=== PATIENT | male | born 1965 | race Hispanic/Latino ===

== ENCOUNTER 2017-09-12 23:48 | Emergency (ER) | payer MEDICAID ==
[2017-09-13 00:22] VITALS: BP 128/71; PULSE 78; RESP 18; TEMP 98.2; O2SAT 99
[2017-09-13] MEDS ORDERED: Sodium Chloride 0.9% 1,000 ML IV STA (00:42)
--- NOTE | 2017-09-13 00:46 | ED PDOC ---
Arrival/HPI - General Historian: Patient - History of Present Illness Time/Duration: Other (see hpi) Context: Home <Sera Reza - Last Filed: 09/13/17 02:06> <Guicho Carmona - Last Filed: 09/13/17 02:52> - General Chief Complaint: Male Genitourinary Time Seen by Provider: 09/13/17 00:41 - History of Present Illness Narrative History of Present Illness (Text): 09/13/17 00:43 This 52 yo male with a pmh cirrhosis, kidney stones, presents o this ED c/o left flank pain since early this afternoon. Patient stated pain resembles like kidney stones she has had in the past. Patient denies fever, sob, cp, n/v, urinary symptoms, or abnormal gait. (Sera Reza) Past Medical History - Provider Review Nursing Documentation Reviewed: Yes - Hematological/Oncological Hx Cirrhosis: Yes - Psychiatric Hx Substance Use: No <Sera Reza - Last Filed: 09/13/17 02:06> Family/Social History - Physician Review Nursing Documentation Reviewed: Yes Family/Social History: Other (noncontributory) Smoking Status: n Hx Alcohol Use: Yes Frequency of alcohol use: Daily Hx Substance Use: No <Sera Reza - Last Filed: 09/13/17 02:06> Allergies/Home Meds <Sera Reza - Last Filed: 09/13/17 02:06> <Guicho Carmona - Last Filed: 09/13/17 02:52> Allergies/Adverse Reactions: Allergies Opioids - Morphine Analogues Adverse Reaction (Verified 09/13/17 00:22) VOMITING Review of Systems - Review of Systems Constitutional: Normal. absent: Fatigue, Weight Change, Fevers Eyes: Normal ENT: Normal Respiratory: Normal Cardiovascular: Normal Gastrointestinal: Abdominal Pain. absent: Nausea, Vomiting Genitourinary Male: Normal. absent: Dysuria, Frequency, Hematuria Musculoskeletal: Normal. absent: Back Pain, Neck Pain Skin: Normal. absent: Rash Neurological: Normal. absent: Headache, Dizziness, Focal Weakness, Gait Changes , Speech Changes, Facial Droop, Disequilibrium, Seizure Endocrine: Normal Hemo/Lymphatic: Normal Psychiatric: Normal. absent: Anxiety, Depression, Suicidal Ideation <Sera Reza - Last Filed: 09/13/17 02:06> Physical Exam Temperature: Afebrile Blood Pressure: Normal Pulse: Regular Respiratory Rate: Normal Appearance: Positive for: Well-Appearing, Non-Toxic, Comfortable Pain Distress: None Mental Status: Positive for: Alert and Oriented X 3 - Systems Exam Head: Present: Atraumatic, Normocephalic Pupils: Present: PERRL Extroacular Muscles: Present: EOMI Conjunctiva: Present: Normal Mouth: Present: Moist Mucous Membranes Neck: Present: Normal Range of Motion Respiratory/Chest: Present: Clear to Auscultation, Good Air Exchange. No: Respiratory Distress, Accessory Muscle Use Cardiovascular: Present: Regular Rate and Rhythm, Normal S1, S2. No: Murmurs Abdomen: Present: Normal Bowel Sounds. No: Tenderness, Distention, Peritoneal Signs Back: Present: Normal Inspection. No: CVA Tenderness, Midline Tenderness, Paraspinal Tenderness, Pain with Leg Raise Upper Extremity: Present: Normal Inspection, Normal ROM. No: Cyanosis, Edema Lower Extremity: Present: Normal Inspection, Normal ROM. No: Edema Neurological: Present: GCS=15, CN II-XII Intact, Speech Normal, Motor Func Grossly Intact, Normal Sensory Function, Normal Cerebellar Funct, Gait Normal, Memory Normal Skin: Present: Warm, Dry, Normal Color. No: Rashes Psychiatric: Present: Alert, Oriented x 3, Normal Insight, Normal Concentration <Sera Reza - Last Filed: 09/13/17 02:06> Vital Signs Temp Pulse Resp BP Pulse Ox 09/13/17 00:13 98.2 F 78 18 128/71 99 Medical Decision Making Re-evaluation Time: 02:06 Reassessment Condition: Re-examined, Improved <Sera Reza - Last Filed: 09/13/17 02:06> <Guicho Carmona - Last Filed: 09/13/17 02:52> ED Course and Treatment: 09/13/17 02:06 Re-evaluation. Patient feels better. Discussed results and plan with patient who expresses understanding. All questions answered and there is agreement with the plan to discharge home with instructions. Patient stable for discharge. Return if symptoms persist or worsen. (Sera Reza P) - Lab Interpretations Lab Results: 09/13/17 00:55 09/13/17 00:55 Lab Results 09/13/17 01:25: Urine Color Yellow, Urine Appearance Clear, Urine pH 6.0, Ur Specific Yoder >= 1.030, Urine Protein Negative, Urine Glucose (UA) Negative, Urine Ketones Negative, Urine Blood Trace-lysed H, Urine Nitrate Negative, Urine Bilirubin Small H, Urine Urobilinogen 1.0 H, Ur Leukocyte Esterase Negative, Urine RBC 0 - 2, Urine WBC 0 - 2, Ur Epithelial Cells 0 - 2 09/13/17 00:55: Sodium 148, Potassium 4.0, Chloride 114 H, Carbon Dioxide 21, Anion Gap 17, BUN 5 L, Creatinine 0.5 L, Est GFR ( Amer) > 60, Est GFR ( Non-Af Amer) > 60, Random Glucose 106, Calcium 8.8, Total Bilirubin 4.1 H, AST 80 H, ALT 26, Alkaline Phosphatase 214 H, Total Protein 8.0, Albumin 3.8, Globulin 4.1, Albumin/Globulin Ratio 0.9 L 09/13/17 00:55: WBC 6.4, RBC 3.64, Hgb 13.0 L, Hct 37.3 L, MCV 102.5, MCH 35.7 H , MCHC 34.9, RDW 15.4 H, Plt Count 56 L, MPV 11.1 H, Gran % 50.5, Lymph % (Auto ) 37.2 H, [place] % (Auto) 8.4 H, Eos % (Auto) 3.4, Baso % (Auto) 0.5, Gran # 3.24 , Lymph # (Auto) 2.4, [place] # (Auto) 0.5, Eos # (Auto) 0.2, Baso # (Auto) 0.03 - RAD Interpretation Radiology Orders: 09/13/17 00:42 ABD & PELVIS W/O PO OR IV CONT [CT] Stat - Medication Orders Current Medication Orders: Discontinued Medications Sodium Chloride (Sodium Chloride 0.9%) 1,000 mls @ 999 mls/hr IV .Q1H1M STA Stop: 09/13/17 01:42 Last Admin: 09/13/17 00:59 Dose: 999 mls/hr eMAR Start Stop Document 09/13/17 00:59 CNR (Rec: 09/13/17 00:59 CNR [id number]) Intravenous Solution Start Date 02/27/18 Start Time 00:59 Ketorolac Tromethamine (Toradol) 30 mg IVP STAT STA Stop: 09/13/17 00:43 Last Admin: 09/13/17 00:59 Dose: 30 mg MAR Pain Assessment Document 09/13/17 00:59 CNR (Rec: 09/13/17 01:00 CNR [id number]) Pain Reassessment Is this a pain reassessment? Yes Location Pain Location Body Site Abdomen Description Description Constant IVP Administration Document 09/13/17 00:59 CNR (Rec: 09/13/17 01:00 CNR [id number]) Charges for Administration # of IVP Administrations 1 - PA / MARKETING PROFESSIONAL / Resident Statement / has reviewed & agrees with the documentation as recorded. / has examined the patient and agrees with the treatment plan. <Guicho Carmona - Last Filed: 09/13/17 02:52> Disposition/Present on Arrival - Present on Arrival Any Indicators Present on Arrival: No History of DVT/PE: No History of Uncontrolled Diabetes: No Urinary Catheter: No History of Decub. Ulcer: No History Surgical Site Infection Following: None - Disposition Have Diagnosis and Disposition been Completed?: Yes Disposition Time: 02:06 Patient Plan: Discharge <Sera Reza - Last Filed: 09/13/17 02:06> <Guicho Carmona - Last Filed: 09/13/17 02:52> - Disposition Diagnosis: Flank pain Disposition: HOME/ ROUTINE Discharge Instructions (ExitCare): Flank Pain Additional Instructions: Call private doctor for follow up visit in 1-2 days. Take medication as instructed. return to emergency if symptoms worsen. Prescriptions: Famotidine [Pepcid] 40 mg PO DAILY #10 tablet Naproxen 500 mg PO BID PRN #14 tablet PRN Reason: Pain, Severe (8-10) Referrals: [facility] [Outside] - Follow up with primary [facility] [Outside] - Follow up with primary Forms: [employer] (Belarusian), WORK NOTE
[2017-09-13 01:23] LABS: BASO # 0.03 K/mm3 (0.0-2.0); BASO % 0.5 % (0.0-3.0); EOS # 0.2 (0.0-0.7); EOS % 3.4 % (1.5-5.0); GRAN # 3.24 (1.4-6.5); GRAN % 50.5 % (50.0-68.0); LYMPH # 2.4 (1.2-3.4); LYMPH % 37.2 % (22.0-35.0); MEAN CELL VOLUME 102.5 fl (80.0-105.0); MEAN CORPUSCULAR HEMOGLOBIN 35.7 pg (25.0-35.0); MEAN CORPUSCULAR HGB CONC 34.9 g/dl (31.0-37.0); MEAN PLATELET VOLUME 11.1 fl (7.0-11.0); MONO # 0.5 (0.1-0.6); MONO % 8.4 % (1.0-6.0); RBC 3.64 10^6/uL (3.5-6.1); RED CELL DISTRIBUTION WIDTH 15.4 % (11.5-14.5); WHITE BLOOD COUNT 6.4 10^3/ul (4.5-11.0)
[2017-09-13 01:38] LABS: URINE BILIRUBIN SMALL (NEGATIVE); URINE BLOOD TRACE-LYSED (NEGATIVE); URINE GLUCOSE (UA) NEGATIVE (NEGATIVE); URINE LEUKOCYTE ESTERASE NEGATIVE Leu/uL (NEGATIVE); URINE NITRATE NEGATIVE (NEGATIVE); URINE PROTEIN NEGATIVE mg/dL (<30 mg/dL)
[2017-09-13 01:39] LABS: ALB/GLOB RATIO 0.9 (1.1-1.8); ALBUMIN 3.8 g/dL (3.0-4.8); ALT/SGPT 26 U/L (7-56); AST/SGOT 80 U/L (17-59); BLOOD UREA NITROGEN 5 mg/dL (7-21); CALCIUM 8.8 mg/dL (8.4-10.5); GFR AFRICAN-AMERICAN > 60; GFR NON-AFRICAN AMERICAN > 60
[2017-09-13 01:45] LABS: URINE APPEARANCE CLEAR (CLEAR); URINE COLOR YELLOW (YELLOW)
[2017-09-13 01:54] LABS: URINE EPITHELIAL CELLS 0 - 2 /hpf (0-5); URINE RBC 0 - 2 /hpf (0-2); URINE WBC 0 - 2 /hpf (0-6)
--- NOTE | 2017-09-13 02:43 | CT ---
EXAM: CT Abdomen and Pelvis Without Intravenous Contrast EXAM DATE/TIME: 09/13/2017 12:42 AM CLINICAL HISTORY: The patient age is 52 years old and is male; Pain; Abdominal pain; Flank; Left; Additional info: Left flank pain Facility exam id and description: Ct abdpelscon abd pelvis w/o po or iv cont TECHNIQUE: Axial computed tomography images of the abdomen and pelvis without intravenous contrast. All CT scans at this facility use one or more dose reduction techniques, viz.: automated exposure control; ma/kV adjustment per patient size (including targeted exams where dose is matched to indication; i.e. head); or iterative reconstruction technique. Coronal and sagittal reformatted images were created and reviewed. COMPARISON: No relevant prior studies available. FINDINGS: Lower thorax: Small cysts or bullae are visualized at the lung bases. ABDOMEN: Liver: Unremarkable. No mass. Gallbladder and bile ducts: Multiple hyperdense gallstones are identified. Pancreas: Within the uncinate portion of the pancreas, there is a hypodense lesion measuring 1.4 x 1.3 cm. An additional small hypodense lesion is seen more inferiorly within the pancreatic head/uncinate process. Differential considerations include pancreatic cysts, pseudocysts, IPMNs, and cystic neoplasm. Spleen: The spleen is enlarged measuring 17.3 cm in length. Adrenals: No mass. Kidneys and ureters: No obstructing stones. No hydronephrosis. Stomach and bowel: Colonic diverticula are visualized. There is stranding adjacent to the ascending colon, which is likely inflammatory. Diverticulitis is within the differential. There is minimal to mild stranding adjacent to the descending colon as well. Appendix: No findings to suggest acute appendicitis. PELVIS: Bladder: No stones. Reproductive: The prostate is mildly prominent in size. ABDOMEN and PELVIS: Intraperitoneal space: No free air. Bones/joints: Hypertrophic degenerative changes are noted within the spine. Soft tissues: A surgical clip is visualized within each inguinal canal. Vasculature: There is atherosclerotic calcification of the abdominal aorta. No abdominal aortic aneurysm. Lymph nodes: No enlarged lymph nodes. IMPRESSION: 1. Splenomegaly. 2. Within the uncinate portion of the pancreas, there is a hypodense lesion measuring 1.4 x 1.3 cm. An additional small hypodense lesion is seen more inferiorly within the pancreatic head/uncinate process. Differential considerations include pancreatic cysts, pseudocysts, IPMNs, and cystic neoplasm. A nonemergent MRI of the abdomen with/without contrast is recommended. 3. Cholelithiasis. 4. Colonic diverticula are visualized. There is stranding adjacent to the ascending colon, which is likely inflammatory. Diverticulitis is within the differential. There is minimal to mild stranding adjacent to the descending colon as well. 5. Incidental/non-acute findings are described above.
== END 2017-09-13 03:15 | disposition home or self-care (01) ==
LOC: MERGE 23:48 → ED 23:48
DX: R10.9 Unspecified abdominal pain (principal); K74.60 Unspecified cirrhosis of liver
CPT/HCPCS: 74176; 80053; 81001; 85025; 96374; 99284; J1885; J7040

== ENCOUNTER 2017-11-23 16:57 | Emergency (ER) | payer MEDICAID ==
[2017-11-23 17:08] VITALS: BMI 25.5
[2017-11-23 17:14] VITALS: TEMP 98.7
--- NOTE | 2017-11-23 17:48 | ED PDOC ---
Arrival/HPI - General Chief Complaint: Abnormal Labs Time Seen by Provider: 11/23/17 17:24 Historian: Patient - History of Present Illness Narrative History of Present Illness (Text): 11/23/17 17:47 A 52 year old male, whose past medical history includes Cirrhosis, kidney stones , antibiotic induced liver failure, [place] [facility] [place]. Patient reports that he went for routine lab work and was called and informed that he had a uti. Antibiotics were called in but patient came to [facility] ED because he was told that his lfts were increased and he needed to get an u/s. Denies chest pain, shortness of breath or abdominal pain. No PMD blood work from [facility]: total bilirubin 6.4 direct 2.2 indirect 4 albumin 3.4 Alt 41 Ast 94 Alk Phos 137 lipase 256 Symptom Onset: Sudden Symptom Course: Unchanged Activities at Onset: Rest Context: [place] Past Medical History - Provider Review Nursing Documentation Reviewed: Yes - Infectious Disease Hx of Infectious Diseases: None - Pulmonary Other/Comment: Recurrent lung infections - HEENT Hx HEENT Disorder: Yes - Renal Hx Kidney Stones: Yes - Hematological/Oncological Hx Cirrhosis: Yes Other/Comment: Stage IV liver disease - Musculoskeletal/Rheumatological Hx Herniated Disk: Yes - Psychiatric Hx Substance Use: No - Surgical History Other/Comment: right knee - Anesthesia Hx Anesthesia: Yes Hx Anesthesia Reactions: No Family/Social History - Physician Review Nursing Documentation Reviewed: Yes Family/Social History: No Known Family HX Smoking Status: Never Smoked Hx Alcohol Use: Yes Hx Substance Use: No Allergies/Home Meds Allergies/Adverse Reactions: Allergies codeine Allergy (Verified 11/03/17 12:46) RASH Opioids - Morphine Analogues Allergy (Verified 11/03/17 12:46) VOMITING Penicillins Allergy (Verified 11/03/17 12:46) RASH Home Medications: Home Meds Medication Instructions Recorded Confirmed No Known Home Med 11/23/17 11/23/17 Review of Systems - Physician Review All systems were reviewed & negative as marked: Yes - Review of Systems Constitutional: absent: Fatigue, Weight Change, Fevers Respiratory: absent: SOB, Cough, Sputum, Wheezing Cardiovascular: absent: Chest Pain, Palpitations Gastrointestinal: absent: Abdominal Pain, Constipation, Diarrhea, Nausea, Vomiting Genitourinary Male: Dysuria. absent: Frequency, Hematuria, Urinary Output Changes Musculoskeletal: absent: Back Pain Neurological: absent: Headache, Dizziness Physical Exam Vital Signs Reviewed: Yes Vital Signs Temp Pulse Resp BP Pulse Ox 11/23/17 19:42 61 14 113/62 99 11/23/17 17:13 98.7 F 81 18 130/68 97 Temperature: Afebrile Blood Pressure: Normal Pulse: Regular Respiratory Rate: Normal Appearance: Positive for: Well-Appearing, Non-Toxic, Comfortable Pain Distress: None Mental Status: Positive for: Alert and Oriented X 3 - Systems Exam Head: Present: Atraumatic, Normocephalic Pupils: Present: PERRL Extroacular Muscles: Present: EOMI Conjunctiva: Present: Normal Mouth: Present: Moist Mucous Membranes Neck: Present: Normal Range of Motion Respiratory/Chest: Present: Clear to Auscultation, Good Air Exchange. No: Respiratory Distress, Accessory Muscle Use Cardiovascular: Present: Regular Rate and Rhythm, Normal S1, S2. No: Murmurs Abdomen: No: Tenderness, Distention, Peritoneal Signs Back: Present: Normal Inspection Upper Extremity: Present: Normal Inspection. No: Cyanosis, Edema Lower Extremity: Present: Normal Inspection. No: Edema Neurological: Present: GCS=15, CN II-XII Intact, Speech Normal Skin: Present: Warm, Dry, Normal Color. No: Rashes Psychiatric: Present: Alert, Oriented x 3, Normal Insight, Normal Concentration Medical Decision Making ED Course and Treatment: 11/23/17 17:45 Impression: A 52 year old male with abnormal lfts. Denies any abdominal pain. Requesting US. Plan: -- labs -- US abdomen -- Reassess and disposition Progress Notes: US Abdomen Complete FINDINGS: Liver: The liver is increased in echogenicity, most commonly due to fatty infiltration, but other chronic liver diseases may have a similar appearance. The liver measures 14.6 x 11.9 cm. Gallbladder: Foci of increased echogenicity are identified within the gallbladder, consistent with gallstones. Gallbladder wall thickening is visualized, suggestive of acute cholecystitis. Common bile duct: The common bile duct measures 0.3 cm in diameter, which is within normal limits. Pancreas: An uncinate process lesion most visualized on the prior CT. Evaluation on the current ultrasound is limited. Kidneys: The right kidney measures 10.0 x 4.6 x 5.1 cm. The left kidney measures 11.3 x 6.0 x 5.2 cm. No shadowing stones. No hydronephrosis. Spleen: The spleen measures 14.8 x 6.0 cm, consistent with splenomegaly. There is normal echotexture of the spleen. Aorta: Not visualized. Inferior vena cava: The visualized segment of the IVC is patent. IMPRESSION: 1. The liver is increased in echogenicity, most commonly due to fatty infiltration, but other chronic liver diseases may have a similar appearance. 2. Foci of increased echogenicity are identified within the gallbladder, consistent with gallstones. Gallbladder wall thickening is visualized, suggestive of acute cholecystitis. Clinical correlation is recommended. 3. Splenomegaly. 4. An uncinate process lesion most visualized on the prior CT. Evaluation on the current ultrasound is limited. A nonemergent MRI of the abdomen with/without contrast is recommended. 5. Additional findings described above. Dictated and Authenticated by: Matt Barrera MD 11/23/2017 8:36 PM Eastern Time ([place] & [place]) 11/23/17 21:46 Elevated by surgery resident. Non-tender abdomen. Lfts improving. Can follow- up as outpatient. Patient again made aware of pancreatic lesion seen on prior CT. Given a copy of ultrasound from [facility] and instructed to follow-up. - Lab Interpretations Lab Results: 11/23/17 18:51 11/23/17 18:51 Lab Results 11/23/17 18:51: Sodium 148, Potassium 3.4 L, Chloride 114 H, Carbon Dioxide 22, Anion Gap 16, BUN 9, Creatinine 0.5 L, Est GFR ( Amer) > 60, Est GFR (Non -Af Amer) > 60, Random Glucose 125 H, Calcium 8.7, Total Bilirubin 5.1 H, AST 82 H, ALT 41, Alkaline Phosphatase 125, Total Protein 6.7, Albumin 3.2, Globulin 3.6, Albumin/Globulin Ratio 0.9 L, Lipase 292 11/23/17 18:51: WBC 3.8 L D, RBC 3.27 L, Hgb 11.4 L, Hct 32.9 L, MCV 100.6, MCH 34.9, MCHC 34.7, RDW 15.1 H, Plt Count 51 L, MPV 10.3, Gran % 48.6 L, Lymph % ( Auto) 42.9 H, [place] % (Auto) 5.3, Eos % (Auto) 2.9, Baso % (Auto) 0.3, Gran # 1.84, Lymph # (Auto) 1.6, [place] # (Auto) 0.2, Eos # (Auto) 0.1, Baso # (Auto) 0.01 I have reviewed the lab results: Yes - RAD Interpretation Radiology Orders: 11/23/17 17:34 ABDOMEN COMPLETE [US] Stat - Scribe Statement The provider has reviewed the documentation as recorded by the Scribe Marcos Sharp Provider Scribe Attestation: All medical record entries made by the Scribe were at my direction and personally dictated by me. I have reviewed the chart and agree that the record accurately reflects my personal performance of the history, physical exam, medical decision making, and the department course for this patient. I have also personally directed, reviewed, and agree with the discharge instructions and disposition. Disposition/Present on Arrival - Present on Arrival Any Indicators Present on Arrival: No History of DVT/PE: No History of Uncontrolled Diabetes: No Urinary Catheter: No History of Decub. Ulcer: No History Surgical Site Infection Following: None - Disposition Have Diagnosis and Disposition been Completed?: Yes Diagnosis: Gallstones, Pancreatic lesion Disposition: HOME/ ROUTINE Disposition Time: 21:47 Patient Plan: Discharge Condition: GOOD Discharge Instructions (ExitCare): Gallstones, Liver Function Test Additional Instructions: Follow-up with PMD within 2 days. Return to ED if condition worsens. Follow- up with surgery for outpatient evaluation for gallbladder removal. Follow-up for abnormal u/s Referrals: PCP,NO [Primary Care Provider] - Follow up with primary Oni Morales MD [Staff Provider] - Follow up with primary Forms: [employer] (E[place]ian)
[2017-11-23 19:02] LABS: BASO # 0.01 K/mm3 (0.0-2.0); BASO % 0.3 % (0.0-3.0); EOS # 0.1 (0.0-0.7); EOS % 2.9 % (1.5-5.0); GRAN # 1.84 (1.4-6.5); GRAN % 48.6 % (50.0-68.0); HEMOGLOBIN 11.4 g/dL (14.0-18.0); LYMPH # 1.6 (1.2-3.4); LYMPH % 42.9 % (22.0-35.0); MEAN CELL VOLUME 100.6 fl (80.0-105.0); MEAN CORPUSCULAR HEMOGLOBIN 34.9 pg (25.0-35.0); MEAN CORPUSCULAR HGB CONC 34.7 g/dl (31.0-37.0); MEAN PLATELET VOLUME 10.3 fl (7.0-11.0); MONO # 0.2 (0.1-0.6); MONO % 5.3 % (1.0-6.0); RBC 3.27 10^6/uL (3.5-6.1); RED CELL DISTRIBUTION WIDTH 15.1 % (11.5-14.5); WHITE BLOOD COUNT 3.8 10^3/ul (4.5-11.0)
[2017-11-23 19:13] LABS: ALB/GLOB RATIO 0.9 (1.1-1.8); ALBUMIN 3.2 g/dL (3.0-4.8); ALT/SGPT 41 U/L (7-56); AST/SGOT 82 U/L (17-59); BLOOD UREA NITROGEN 9 mg/dL (7-21); CALCIUM 8.7 mg/dL (8.4-10.5); GFR AFRICAN-AMERICAN > 60; GFR NON-AFRICAN AMERICAN > 60; LIPASE 292 U/L (23-300)
--- NOTE | 2017-11-23 20:37 | US ---
EXAM: US Abdomen Complete EXAM DATE/TIME: 11/23/2017 5:34 PM CLINICAL HISTORY: The patient age is 52 years old and is male; Abnormal findings; Abnormal lab test; Elevated liver enzymes; Additional info: Elevated lfts Facility exam id and description: Us abd abdomen complete TECHNIQUE: Real-time ultrasound of the abdomen (complete) with image documentation. COMPARISON: CT - ABD PELVIS W/O PO OR IV CONT 2017-09-13 01:38 FINDINGS: Liver: The liver is increased in echogenicity, most commonly due to fatty infiltration, but other chronic liver diseases may have a similar appearance. The liver measures 14.6 x 11.9 cm. Gallbladder: Foci of increased echogenicity are identified within the gallbladder, consistent with gallstones. Gallbladder wall thickening is visualized, suggestive of acute cholecystitis. Common bile duct: The common bile duct measures 0.3 cm in diameter, which is within normal limits. Pancreas: An uncinate process lesion most visualized on the prior CT. Evaluation on the current ultrasound is limited. Kidneys: The right kidney measures 10.0 x 4.6 x 5.1 cm. The left kidney measures 11.3 x 6.0 x 5.2 cm. No shadowing stones. No hydronephrosis. Spleen: The spleen measures 14.8 x 6.0 cm, consistent with splenomegaly. There is normal echotexture of the spleen. Aorta: Not visualized. Inferior vena cava: The visualized segment of the IVC is patent. IMPRESSION: 1. The liver is increased in echogenicity, most commonly due to fatty infiltration, but other chronic liver diseases may have a similar appearance. 2. Foci of increased echogenicity are identified within the gallbladder, consistent with gallstones. Gallbladder wall thickening is visualized, suggestive of acute cholecystitis. Clinical correlation is recommended. 3. Splenomegaly. 4. An uncinate process lesion most visualized on the prior CT. Evaluation on the current ultrasound is limited. A nonemergent MRI of the abdomen with/without contrast is recommended. 5. Additional findings described above.
--- NOTE | 2017-11-23 21:49 | CP.PCM.CON ---
History of Present Illness - History of Present Illness History of Present Illness: Surgery Consult: Dr. Morales Pt is a 52M with PMHx significant for alcohol induced hepatitis/cirrhosis who was sent to [facility] from urgent care center due to elevated Tbili. Pt states that he went to the urgent care center because his urine was dark and wanted to get his blood work checked. He denies having any other complaints such as abdominal pain or nausea/vomiting. At the urgent care center, his blood work showed elevated liver enzymes and he was instructed to come to the hospital. In the ER, an US of his RUQ showed cholelithiasis with GB wall thickening. Surgery called to evaluate. Upon exam, pt is resting comfortably in bed and states he has no complaints. Denies abdominal pain or post-prandial pain. States he was admitted to [facility] last year for his liver and was in the hospital for quite some time and was found to have elevated liver enzymes at the time. Since then, he denies having seen a doctor. PMHx: alcoholic hepatitis, kidney stones, pneumonia PSHx: denies SocialHx: admits to being a heavy drinker up till 1 yr ago but only drinks socially now; denies smoking/drugs All: as listed Review of Systems - Review of Systems All systems: reviewed and no additional remarkable complaints except (as per HPI ) Past Patient History - Infectious Disease Hx of Infectious Diseases: None - Past Social History Smoking Status: Never Smoked Alcohol: Other (former heavy drinker) Drugs: Denies - PULMONARY Other/Comment: Recurrent lung infections - HEENT Hx HEENT Problems: Yes - RENAL Hx Kidney Stones: Yes - HEMATOLOGICAL/ONCOLOGICAL Hx Cirrhosis: Yes Other/Comment: Stage IV liver disease - MUSCULOSKELETAL/RHEUMATOLOGICAL Hx Herniated Disk: Yes - PSYCHIATRIC Hx Substance Use: No - SURGICAL HISTORY Other/Comment: right knee - ANESTHESIA Hx Anesthesia: Yes Hx Anesthesia Reactions: No Meds Allergies/Adverse Reactions: Allergies Allergy/AdvReac Type Severity Reaction Status Date / Time codeine Allergy RASH Verified 11/03/17 12:46 Opioids - Morphine Analogues Allergy VOMITING Verified 11/03/17 12:46 Penicillins Allergy RASH Verified 11/03/17 12:46 Physical Exam - Constitutional Appears: Well, No Acute Distress - Head Exam Head Exam: ATRAUMATIC, NORMOCEPHALIC - Eye Exam Eye Exam: Scleral icterus - ENT Exam ENT Exam: Mucous Membranes Moist - Respiratory Exam Respiratory Exam: NORMAL BREATHING PATTERN - Cardiovascular Exam Cardiovascular Exam: RRR - GI/Abdominal Exam GI & Abdominal Exam: Soft. absent: Distended, Guarding, Rebound, Tenderness - Neurological Exam Neurological exam: Alert, Oriented x3 - Skin Skin Exam: Dry, Warm (Jaundice ) Results - Vital Signs Recent Vital Signs: Last Vital Signs Temp 98.7 F 11/23/17 17:13 Pulse 61 11/23/17 19:42 Resp 14 11/23/17 19:42 BP 113/62 11/23/17 19:42 Pulse Ox 99 11/23/17 19:42 - Labs Result Diagrams: 11/23/17 18:51 11/23/17 18:51 Labs: Laboratory Results - last 24 hr 11/23/17 11/23/17 18:51 18:51 WBC 3.8 L D RBC 3.27 L Hgb 11.4 L Hct 32.9 L MCV 100.6 MCH 34.9 MCHC 34.7 RDW 15.1 H Plt Count 51 L MPV 10.3 Gran % 48.6 L Lymph % (Auto) 42.9 H [place] % (Auto) 5.3 Eos % (Auto) 2.9 Baso % (Auto) 0.3 Gran # 1.84 Lymph # (Auto) 1.6 [place] # (Auto) 0.2 Eos # (Auto) 0.1 Baso # (Auto) 0.01 Sodium 148 Potassium 3.4 L Chloride 114 H Carbon Dioxide 22 Anion Gap 16 BUN 9 Creatinine 0.5 L Est GFR ( Amer) > 60 Est GFR (Non-Af Amer) > 60 Random Glucose 125 H Calcium 8.7 Total Bilirubin 5.1 H AST 82 H ALT 41 Alkaline Phosphatase 125 Total Protein 6.7 Albumin 3.2 Globulin 3.6 Albumin/Globulin Ratio 0.9 L Lipase 292 - Imaging and Cardiology CT scan - abdomen Status: Image reviewed by me, Report reviewed by me Assessment & Plan - Assessment and Plan (Free Text) Assessment: 52M with hx of alcoholic cirrhosis, with elevated T bili, r/o cholecystitis Plan: - pt completely asymptomatic with no abdominal pain - can f/u as outpt for elective cholecystectomy if starts having symptoms - no surgical intervention at this time - d/w Dr. Morales who agrees with above Wilma, PGY-3
[2017-11-23 22:03] VITALS: BP 112/60; PULSE 76; RESP 12; O2SAT 100
== END 2017-11-23 22:05 | disposition home or self-care (01) ==
LOC: ED 16:57
DX: K80.80 Other cholelithiasis without obstruction (principal); K86.9 Disease of pancreas, unspecified; K74.60 Unspecified cirrhosis of liver

== ENCOUNTER 2017-11-29 07:14 | Emergency (ER) | payer MEDICAID ==
[2017-11-29 07:26] VITALS: TEMP 98.2
[2017-11-29 07:27] VITALS: BMI 25.3
[2017-11-29] MEDS ORDERED: Sodium Chloride 0.9% 1,000 ML IV STA (07:32)
--- NOTE | 2017-11-29 07:35 | ED PDOC ---
Arrival/HPI - General Time Seen by Provider: 11/29/17 07:22 Historian: Patient - History of Present Illness Narrative History of Present Illness (Text): 11/29/17 07:34 A 52 year old male, whose past medical history includes cirrhosis, kidney stones , antibiotic induced liver failure, presents to the emergency department complaining of one day duration, intermittent, left- sided flank pain. The patient notes that he has had a UTI for 6 days with dysuria. He admits to drinking alcohol this morning at 4 am. The patient denies fevers, chills, headache, dizziness, chest pain, shortness of breath, dyspnea on exertion, cough , abdominal pain, nausea, vomiting, diarrhea, neck pain, or any other complaint. PMD: None Time/Duration: Other (1 Day) Symptom Onset: Sudden Symptom Course: Intermittent Activities at Onset: Rest, Light Context: Home Associated Symptoms (Text): 11/29/17 08:03 Severe left sided flank pain without radiation intermittently for 2 days. He has genitourinary symptoms. No abdominal pain nausea or vomiting. Past Medical History - Provider Review Nursing Documentation Reviewed: Yes - Infectious Disease Hx of Infectious Diseases: None - Pulmonary Other/Comment: Recurrent lung infections - HEENT Hx HEENT Disorder: Yes - Renal Hx Kidney Stones: Yes - Hematological/Oncological Hx Cirrhosis: Yes Other/Comment: Stage IV liver disease - Musculoskeletal/Rheumatological Hx Herniated Disk: Yes - Psychiatric Hx Substance Use: No - Surgical History Other/Comment: right knee - Anesthesia Hx Anesthesia: Yes Hx Anesthesia Reactions: No Family/Social History - Physician Review Nursing Documentation Reviewed: Yes Family/Social History: No Known Family HX Smoking Status: Never Smoked Hx Alcohol Use: Yes Frequency of alcohol use: Daily Hx Substance Use: No Allergies/Home Meds Allergies/Adverse Reactions: Allergies codeine Allergy (Verified 11/03/17 12:46) RASH Opioids - Morphine Analogues Allergy (Verified 11/03/17 12:46) VOMITING Penicillins Allergy (Verified 11/03/17 12:46) RASH Review of Systems - Physician Review All systems were reviewed & negative as marked: Yes - Review of Systems Constitutional: absent: Fevers, Night Sweats Respiratory: absent: SOB, Cough Cardiovascular: absent: Chest Pain, SOLIZ Gastrointestinal: absent: Abdominal Pain, Diarrhea, Nausea, Vomiting Genitourinary Male: Dysuria, Frequency. absent: Hematuria Musculoskeletal: Back Pain (Left- sided flank pain) Neurological: absent: Headache, Dizziness Physical Exam Vital Signs Reviewed: Yes Vital Signs Temp Pulse Resp BP Pulse Ox 11/29/17 07:24 98.2 F 94 H 17 136/67 97 Temperature: Afebrile Blood Pressure: Normal Pulse: Regular Respiratory Rate: Normal Appearance: Positive for: Uncomfortable, Other (Patient smells of alcohol.) Pain Distress: Mild Mental Status: Positive for: Alert and Oriented X 3 - Systems Exam Head: Present: Atraumatic, Normocephalic Pupils: Present: PERRL Extroacular Muscles: Present: EOMI Conjunctiva: Present: Normal Mouth: Present: Moist Mucous Membranes Neck: Present: Normal Range of Motion Respiratory/Chest: Present: Clear to Auscultation, Good Air Exchange. No: Respiratory Distress, Accessory Muscle Use Cardiovascular: Present: Regular Rate and Rhythm, Normal S1, S2. No: Murmurs Abdomen: No: Tenderness, Distention, Peritoneal Signs, Rebound, Guarding Back: Present: CVA Tenderness (Left CVA Tenderness (Mild)) Upper Extremity: Present: Normal Inspection. No: Cyanosis, Edema Lower Extremity: Present: Normal Inspection. No: Edema Neurological: Present: GCS=15, CN II-XII Intact, Speech Normal, Motor Func Grossly Intact Skin: Present: Warm, Dry, Normal Color. No: Rashes Psychiatric: Present: Alert, Oriented x 3, Normal Insight, Normal Concentration Medical Decision Making ED Course and Treatment: 11/29/17 07:37 Impression: A 52 year old male presents to the emergency department complaining of 1 day duration, intermittent left- sided flank pain. Plan: -- Abdomen/Pelvis CT -- Urinalysis -- Labs -- Toradol, Zofran, and IV Fluids -- Reassess and disposition Progress Notes: 11/29/17 10:11 Patient reports his pain has improved, though it is not gone. PROCEDURE: CT Abdomen and Pelvis without intravenous contrast Dictator : Kyler Belle MD Report Date : 11/29/2017 10:03:53 IMPRESSION: Mildly dilated left ureter and left renal collecting system with no visible stone. Findings most consistent with a recently passed stone. - Lab Interpretations Lab Results: 11/29/17 07:43 11/29/17 07:43 Lab Results 11/29/17 08:20: Urine Color Yellow, Urine Appearance Clear, Urine pH 6.0, Ur Specific Lawrence 1.025, Urine Protein 100 H, Urine Glucose (UA) Negative, Urine Ketones Negative, Urine Blood Large H, Urine Nitrate Negative, Urine Bilirubin Small H, Urine Urobilinogen 1.0 H, Ur Leukocyte Esterase Trace H, Urine RBC 25 - 30, Urine WBC 1 - 3, Ur Epithelial Cells None, Amorphous Sediment Few, Urine Bacteria Mod, Coarse Granular Casts Trace H 11/29/17 07:43: Sodium 152 H, Potassium 3.7, Chloride 114 H, Carbon Dioxide 15 L , Anion Gap 27 H, BUN 9, Creatinine 1.0, Est GFR ( Amer) > 60, Est GFR ( Non-Af Amer) > 60, Random Glucose 128 H, Calcium 8.4, Magnesium 1.8, Total Bilirubin 3.9 H, AST 73 H, ALT 34, Alkaline Phosphatase 172 H D, Total Protein 7.1, Albumin 3.6, Globulin 3.6, Albumin/Globulin Ratio 1.0 L, Lipase 155 11/29/17 07:43: WBC 9.1 D, RBC 3.47 L, Hgb 12.4 L, Hct 34.8 L, MCV 100.3, MCH 35.7 H, MCHC 35.6, RDW 15.8 H, Plt Count 67 L, MPV 10.0, Gran % 67.1, Lymph % ( Auto) 25.2, [place] % (Auto) 6.6 H, Eos % (Auto) 0.7 L, Baso % (Auto) 0.4, Gran # 6.09, Lymph # (Auto) 2.3, [place] # (Auto) 0.6, Eos # (Auto) 0.1, Baso # (Auto) 0.04 11/29/17 07:43: Alcohol, Quantitative 228 H I have reviewed the lab results: Yes - RAD Interpretation Radiology Orders: 11/29/17 07:32 ABD & PELVIS W/O PO OR IV CONT [CT] Stat CT scan of the abdomen and pelvis is read by the radiologist shows left hydronephrosis and a probable recently passed stone. Trash Collector: Radiologist - Medication Orders Current Medication Orders: Discontinued Medications Sodium Chloride (Sodium Chloride 0.9%) 1,000 mls @ 1,000 mls/hr IV .Q1H STA Stop: 11/29/17 08:31 Last Admin: 11/29/17 08:04 Dose: 1,000 mls/hr eMAR Start Stop Document 11/29/17 08:04 [facility] (Rec: 11/29/17 08:05 [id number] Intravenous Solution Start Date 11/29/17 Start Time 08:04 End Date 11/29/17 End time 09:04 Total Infusion Time 60 Ketorolac Tromethamine (Toradol) 15 mg IVP STAT STA Stop: 11/29/17 07:33 Last Admin: 11/29/17 07:58 Dose: 15 mg MAR Pain Assessment Document 11/29/17 07:58 [facility] (Rec: 11/29/17 07:58 [id number] Pain Reassessment Is this a pain reassessment? No Presence of Pain Presence of Pain Yes IVP Administration Document 11/29/17 07:58 [facility] (Rec: 11/29/17 07:58 [id number] Charges for Administration # of IVP Administrations 1 Ondansetron HCl (Zofran Inj) 4 mg IVP STAT STA Stop: 11/29/17 07:33 Last Admin: 11/29/17 07:58 Dose: 4 mg IVP Administration Document 11/29/17 07:58 [facility] (Rec: 11/29/17 07:58 [id number] Charges for Administration # of IVP Administrations 1 - Scribe Statement The provider has reviewed the documentation as recorded by the Scribe Svitlana Leavitt Provider Scribe Attestation: All medical record entries made by the Scribe were at my direction and personally dictated by me. I have reviewed the chart and agree that the record accurately reflects my personal performance of the history, physical exam, medical decision making, and the department course for this patient. I have also personally directed, reviewed, and agree with the discharge instructions and disposition. Disposition/Present on Arrival - Present on Arrival Any Indicators Present on Arrival: No History of DVT/PE: No History of Uncontrolled Diabetes: No Urinary Catheter: No History of Decub. Ulcer: No History Surgical Site Infection Following: None - Disposition Have Diagnosis and Disposition been Completed?: Yes Diagnosis: Alcohol intoxication, Renal colic on left side Disposition: HOME/ ROUTINE Disposition Time: 10:36 Patient Plan: Discharge Condition: FAIR Discharge Instructions (ExitCare): Renal Colic (DC), Alcohol Abuse and Alcoholism (DC) Additional Instructions: Follow-up with PMD and urologist. Follow up in ER as needed. Prescriptions: Ketorolac Tromethamine [Toradol] 10 mg PO Q6 #20 tab
[2017-11-29 07:46] LABS: BASO # 0.04 K/mm3 (0.0-2.0); BASO % 0.4 % (0.0-3.0); EOS # 0.1 (0.0-0.7); EOS % 0.7 % (1.5-5.0); GRAN # 6.09 (1.4-6.5); GRAN % 67.1 % (50.0-68.0); HEMOGLOBIN 12.4 g/dL (14.0-18.0); LYMPH # 2.3 (1.2-3.4); LYMPH % 25.2 % (22.0-35.0); MEAN CELL VOLUME 100.3 fl (80.0-105.0); MEAN CORPUSCULAR HEMOGLOBIN 35.7 pg (25.0-35.0); MEAN CORPUSCULAR HGB CONC 35.6 g/dl (31.0-37.0); MONO # 0.6 (0.1-0.6); MONO % 6.6 % (1.0-6.0); RBC 3.47 10^6/uL (3.5-6.1); RED CELL DISTRIBUTION WIDTH 15.8 % (11.5-14.5); WHITE BLOOD COUNT 9.1 10^3/ul (4.5-11.0)
[2017-11-29 08:02] LABS: ALBUMIN 3.6 g/dL (3.0-4.8); ALT/SGPT 34 U/L (7-56); AST/SGOT 73 U/L (17-59); BLOOD UREA NITROGEN 9 mg/dL (7-21); CALCIUM 8.4 mg/dL (8.4-10.5); GFR NON-AFRICAN AMERICAN > 60; LIPASE 155 U/L (23-300)
[2017-11-29 08:32] LABS: URINE BILIRUBIN SMALL (NEGATIVE); URINE BLOOD LARGE (NEGATIVE); URINE GLUCOSE (UA) NEGATIVE (NEGATIVE); URINE LEUKOCYTE ESTERASE TRACE Leu/uL (NEGATIVE); URINE PROTEIN 100 mg/dL (<30 mg/dL)
[2017-11-29 08:43] LABS: URINE APPEARANCE CLEAR (CLEAR); URINE COLOR YELLOW (YELLOW)
[2017-11-29 08:55] LABS: URINE BACTERIA MOD (NEG); URINE RBC 25 - 30 /hpf (0-2)
[2017-11-29 08:56] LABS: URINE AMORPHOUS SEDIMENT FEW; URINE COARSE GRANULAR CAST TRACE /hpf (0-2)
--- NOTE | 2017-11-29 10:05 | CT ---
PROCEDURE: CT Abdomen and Pelvis without intravenous contrast HISTORY: left stone run COMPARISON: None. TECHNIQUE: Without contrast. Contrast dose: Radiation dose: Total exam DLP = 536 mGy-cm. This CT exam was performed using one or more of the following dose reduction techniques: Automated exposure control, adjustment of the mA and/or kV according to patient size, and/or use of iterative reconstruction technique. FINDINGS: LOWER THORAX: Unremarkable. LIVER: Unremarkable. No gross lesion or ductal dilatation. GALLBLADDER AND BILE DUCTS: Gallstones PANCREAS: Unremarkable. No gross lesion or ductal dilatation. SPLEEN: Unremarkable. ADRENALS: Unremarkable. No mass. KIDNEYS AND URETERS: The left collecting system and ureter are mildly dilated but there is no visible stone. Findings are most likely due to a recently passed stone. Small nonobstructing 2 mm stones are seen in the right kidney VASCULATURE: Unremarkable. No aortic aneurysm. BOWEL: There is diverticulosis throughout the colon with no evidence of acute diverticulitis. APPENDIX: Unremarkable. Normal appendix. PERITONEUM: Unremarkable. No free fluid. No free air. LYMPH NODES: Unremarkable. No enlarged lymph nodes. BLADDER: Unremarkable. REPRODUCTIVE: Unremarkable. BONES: No acute fracture. OTHER FINDINGS: None. IMPRESSION: Mildly dilated left ureter and left renal collecting system with no visible stone. Findings most consistent with a recently passed stone.
[2017-11-29 13:05] VITALS: RESP 18
[2017-11-29 14:21] VITALS: O2SAT 97
[2017-11-29 14:26] VITALS: BP 135/66; PULSE 97
== END 2017-11-29 14:27 | disposition home or self-care (01) ==
LOC: ED 07:14
DX: F10.129 Alcohol abuse with intoxication, unspecified (principal); N23 Unspecified renal colic
CPT/HCPCS: 74176; 80053; 80320; 81001; 83690; 83735; 85025; 87086; 96361; 96374; 96375; 99284; J1885; J2405; J7040

== ENCOUNTER 2018-03-08 12:10 | Emergency (ER) | payer MEDICAID ==
[2018-03-08 12:10] VITALS: BMI 25.3
[2018-03-08 12:33] VITALS: TEMP 98.1
[2018-03-08] MEDS ORDERED: Sodium Chloride 0.9% 1,000 ML IV STA ×2 (12:40→13:49)
--- NOTE | 2018-03-08 12:57 | ED PDOC ---
Arrival/HPI - General Chief Complaint: Abdominal Pain Time Seen by Provider: 03/08/18 12:38 Historian: Patient - History of Present Illness Narrative History of Present Illness (Text): 52 y/o M w/ h/o kidney stones presenting for a left sided renal colic. The patient reports the pain starting 5-6hrs ago on the left side with associated nausea, left lower quadrant pain and cramping. He reports the pain being similar to previous episodes of renal colic in the past. The patient denies taking any medication for the pain. Patient admits to dysuria, but denies any fever, chills, hematuria, or any other complaints. Time/Duration: 4-6 hours Symptom Onset: Sudden Symptom Course: Worsening Quality: Stabbing Severity Level: 9 Activities at Onset: Rest Context: Home Past Medical History - Infectious Disease Hx of Infectious Diseases: None - Cardiac Hx Cardiac Disorders: No - Pulmonary Hx Respiratory Disorders: Yes Hx Bronchitis: Yes - Neurological Hx Neurological Disorder: No - HEENT Hx HEENT Disorder: Yes - Renal Hx Renal Disorder: Yes Hx Kidney Stones: Yes - Endocrine/Metabolic Hx Endocrine Disorders: No - Hematological/Oncological Hx Blood Disorders: Yes Hx Cirrhosis: Yes Other/Comment: Stage IV liver disease - Integumentary Hx Dermatological Disorder: No - Musculoskeletal/Rheumatological Hx Musculoskeletal Disorders: Yes Hx Herniated Disk: Yes - Gastrointestinal Hx Gastrointestinal Disorders: Yes Hx Liver Failure: Yes Other/Comment: GI BLEED - Genitourinary/Gynecological Hx Genitourinary Disorders: No - Psychiatric Hx Psychophysiologic Disorder: No Hx Substance Use: No - Surgical History Hx Orthopedic Surgery: Yes Other/Comment: right knee - Anesthesia Hx Anesthesia: Yes Hx Anesthesia Reactions: No Family/Social History Smoking Status: Never Smoked Hx Alcohol Use: Yes Hx Substance Use: No Allergies/Home Meds Allergies/Adverse Reactions: Allergies codeine Allergy (Verified 03/08/18 12:28) RASH Opioids - Morphine Analogues Allergy (Verified 03/08/18 12:28) VOMITING Penicillins Allergy (Verified 03/08/18 12:28) RASH Review of Systems - Physician Review All systems were reviewed & negative as marked: Yes - Review of Systems Constitutional: absent: Fevers, Night Sweats Gastrointestinal: Abdominal Pain Genitourinary Male: Dysuria. absent: Hematuria Physical Exam Vital Signs Reviewed: Yes Vital Signs Temp Pulse Resp BP Pulse Ox 03/08/18 14:55 75 18 118/69 98 03/08/18 12:28 98.1 F 77 16 121/72 97 Temperature: Afebrile Blood Pressure: Normal Pulse: Regular Respiratory Rate: Normal Appearance: Positive for: Well-Appearing Mental Status: Positive for: Alert and Oriented X 3 - Systems Exam Extroacular Muscles: Present: EOMI Mouth: Present: Moist Mucous Membranes Respiratory/Chest: Present: Clear to Auscultation, Good Air Exchange. No: Respiratory Distress Cardiovascular: Present: Regular Rate and Rhythm, Normal S1, S2 Abdomen: Present: Tenderness (tenderness to palpation of LLQ), Normal Bowel Sounds. No: Distention, Peritoneal Signs Back: Present: CVA Tenderness (left sided tenderness to palpation), Paraspinal Tenderness Lower Extremity: Present: Normal Inspection. No: Edema, CALF TENDERNESS Neurological: Present: GCS=15, CN II-XII Intact, Speech Normal Skin: Present: Warm, Dry, Normal Color Medical Decision Making ED Course and Treatment: Impression 52 y/o M w/ h/o kidney stones presenting w/ L CVA tenderness and L sided abdominal pain Differential Diagnoses Include But Are not Limited To: Renal Colic Diverticulitis SBO Plan --Labs --IVF --Toradol --Valium --CT a/p --Reasess and disposition Progress Notes Labs reveiwed with hypernatremia noted, most likely due to dehydration. Additional fluids ordered. 03/08/[address] without IV contrast: Creator : Kyler Belle MD IMPRESSION: No acute intra-abdominal findings. No evidence of urolithiasis - Lab Interpretations Lab Results: 03/08/18 13:10 03/08/18 13:10 Lab Results 03/08/18 13:10: Sodium 150 H, Potassium 4.1, Chloride 114 H, Carbon Dioxide 19 L , Anion Gap 21 H, BUN 5 L, Creatinine 0.5 L, Est GFR ( Amer) > 60, Est GFR (Non-Af Amer) > 60, Random Glucose 95, Calcium 8.6, Total Bilirubin 2.7 H, AST 57, ALT 23, Alkaline Phosphatase 148 H, Total Protein 8.1, Albumin 4.1, Globulin 4.0, Albumin/Globulin Ratio 1.0 L 03/08/18 13:10: WBC 5.7 D, RBC 3.83, Hgb 13.3 L, Hct 38.2 L, MCV 99.7, MCH 34.7 , MCHC 34.8, RDW 14.9 H, Plt Count 69 L, MPV 10.4, Gran % 45.7 L, Lymph % (Auto ) 46.0 H, [place] % (Auto) 4.6, Eos % (Auto) 3.2, Baso % (Auto) 0.5, Gran # 2.60, Lymph # (Auto) 2.6, [place] # (Auto) 0.3, Eos # (Auto) 0.2, Baso # (Auto) 0.03 I have reviewed the lab results: Yes - RAD Interpretation Radiology Orders: 03/08/18 12:59 ABDOMEN & PELVIS [ABD & PELVIS W/O PO OR IV CONT] [CT] Stat Extension Supervisor: Radiologist - Medication Orders Current Medication Orders: Discontinued Medications Diazepam (Valium) 5 mg PO ONCE ONE PRN Reason: Protocol Stop: 03/08/18 12:52 Last Admin: 03/08/18 13:08 Dose: 5 mg Sodium Chloride (Sodium Chloride 0.9%) 1,000 mls @ 999 mls/hr IV .Q1H1M STA Stop: 03/08/18 13:40 Last Admin: 03/08/18 13:10 Dose: 999 mls/hr eMAR Start Stop Document 03/08/18 13:10 [facility] (Rec: 03/08/18 13:10 [facility] Intravenous Solution Start Date 03/08/18 Start Time 13:10 Sodium Chloride (Sodium Chloride 0.9%) 1,000 mls @ 999 mls/hr IV .Q1H1M STA Stop: 03/08/18 14:49 Last Admin: 03/08/18 14:00 Dose: Not Given Non-Admin Reason: Patient Refused Ketorolac Tromethamine (Toradol) 30 mg IVP STAT STA Stop: 03/08/18 12:40 Last Admin: 03/08/18 13:09 Dose: 30 mg MAR Pain Assessment Document 03/08/18 13:09 [facility] (Rec: 03/08/18 13:10 [email or web address] Pain Reassessment Is this a pain reassessment? No Sleep Is patient sleeping during reassessment? No Presence of Pain Presence of Pain Yes IVP Administration Document 03/08/18 13:09 [place] (Rec: 03/08/18 13:10 [email or web address] Charges for Administration # of IVP Administrations 1 Re-Assess: [place] Pain Assessment Document 03/08/18 14:09 [facility] (Rec: 03/08/18 15:02 [email or web address] Pain Reassessment Is this a pain reassessment? Yes Sleep Is patient sleeping during reassessment? Yes - Scribe Statement The provider has reviewed the documentation as recorded by the Scribe Ino Rene Provider Scribe Attestation: All medical record entries made by the Scribe were at my direction and personally dictated by me. I have reviewed the chart and agree that the record accurately reflects my personal performance of the history, physical exam, medical decision making, and the department course for this patient. I have also personally directed, reviewed, and agree with the discharge instructions and disposition. Disposition/Present on Arrival - Present on Arrival Any Indicators Present on Arrival: No History of DVT/PE: No History of Uncontrolled Diabetes: No Urinary Catheter: No History of Decub. Ulcer: No History Surgical Site Infection Following: None - Disposition Have Diagnosis and Disposition been Completed?: Yes Diagnosis: Renal colic on left side, Back pain Disposition: HOME/ ROUTINE Disposition Time: 14:27 Patient Plan: Discharge Patient Problems: Current Active Problems Problem Status Onset Back pain Acute Renal colic on left side Acute Condition: IMPROVED Discharge Instructions (ExitCare): Renal Colic Prescriptions: Diazepam [Valium] 2 mg PO PRN PRN 2 Days #4 tablet PRN Reason: Anxiety Ibuprofen [Motrin Tab] 800 mg PO Q6H PRN 4 Days #24 tab PRN Reason: Pain, Moderate (4-7) Forms: [employer] ([place]i)
[2018-03-08 13:21] LABS: BASO # 0.03 K/mm3 (0.0-2.0); BASO % 0.5 % (0.0-3.0); EOS # 0.2 (0.0-0.7); EOS % 3.2 % (1.5-5.0); GRAN # 2.6 (1.4-6.5); GRAN % 45.7 % (50.0-68.0); HEMOGLOBIN 13.3 g/dL (14.0-18.0); LYMPH # 2.6 (1.2-3.4); MEAN CELL VOLUME 99.7 fl (80.0-105.0); MEAN CORPUSCULAR HEMOGLOBIN 34.7 pg (25.0-35.0); MEAN CORPUSCULAR HGB CONC 34.8 g/dl (31.0-37.0); MEAN PLATELET VOLUME 10.4 fl (7.0-11.0); MONO # 0.3 (0.1-0.6); MONO % 4.6 % (1.0-6.0); RBC 3.83 10^6/uL (3.5-6.1); RED CELL DISTRIBUTION WIDTH 14.9 % (11.5-14.5); WHITE BLOOD COUNT 5.7 10^3/ul (4.5-11.0)
[2018-03-08 13:29] LABS: ALBUMIN 4.1 g/dL (3.0-4.8); ALT/SGPT 23 U/L (7-56); AST/SGOT 57 U/L (17-59); BLOOD UREA NITROGEN 5 mg/dL (7-21); CALCIUM 8.6 mg/dL (8.4-10.5); GFR NON-AFRICAN AMERICAN > 60
--- NOTE | 2018-03-08 13:52 | CT ---
Date of service: 03/08/2018 PROCEDURE: CT Abdomen and Pelvis without intravenous contrast HISTORY: h/o kidney stones w/ L sided renal colic COMPARISON: 11/29/2017 CT TECHNIQUE: Without contrast.. Contrast dose: Radiation dose: Total exam DLP = 520 mGy-cm. This CT exam was performed using one or more of the following dose reduction techniques: Automated exposure control, adjustment of the mA and/or kV according to patient size, and/or use of iterative reconstruction technique. FINDINGS: LOWER THORAX: Unremarkable. LIVER: Unremarkable. No gross lesion or ductal dilatation. GALLBLADDER AND BILE DUCTS: Multiple gallstones PANCREAS: Unremarkable. No gross lesion or ductal dilatation. SPLEEN: Unremarkable. ADRENALS: Unremarkable. No mass. KIDNEYS AND URETERS: Unremarkable. No hydronephrosis. No solid mass. VASCULATURE: Unremarkable. No aortic aneurysm. BOWEL: Unremarkable. No obstruction. No gross mural thickening. APPENDIX: Unremarkable. Normal appendix. PERITONEUM: Unremarkable. No free fluid. No free air. LYMPH NODES: Unremarkable. No enlarged lymph nodes. BLADDER: Unremarkable. REPRODUCTIVE: Unremarkable. BONES: No acute fracture. OTHER FINDINGS: None. IMPRESSION: No acute intra-abdominal findings. No evidence of urolithiasis
[2018-03-08 14:56] VITALS: BP 118/69; PULSE 75; RESP 18; O2SAT 98
== END 2018-03-08 15:15 | disposition home or self-care (01) ==
LOC: ED 12:10
DX: N23 Unspecified renal colic (principal); M54.9 Dorsalgia, unspecified
CPT/HCPCS: 74176; 80053; 85025; 96374; 99283; J1885; J7030

== ENCOUNTER 2018-04-01 07:22 | Emergency (ER) | payer SELFPAY ==
[2018-04-01 07:23] VITALS: BMI 25.3
[2018-04-01 07:48] VITALS: RESP 18; O2SAT 98
[2018-04-01] MEDS ORDERED: Albuterol 0.083% Inhal Sol (2.5 mg/3 mL) UD INH STA (08:20)
--- NOTE | 2018-04-01 08:38 | ED PDOC ---
Arrival/HPI - General Chief Complaint: Med Refill Time Seen by Provider: 04/01/18 08:20 Historian: Patient - History of Present Illness Narrative History of Present Illness (Text): 04/01/18 08:33 A 52 year old male, whose past medical history includes stage 4 cirrhosis, s/p tracheostomy now closed, s/p pneumonia positive for mdr, and gram-postive as per patient presents to the emergency department complaining of productive cough since 2 weeks ago. Patient reports cough is productive of mostly clear, white sputum. Patient notes he responds to his ventolin pump which ran out today. Patient denies any fever, constitutional symptoms, syncopal weakness, chest pain, dyspnea on exertion, or any other complaints. Time/Duration: Other (2 weeks) Symptom Onset: Gradual Activities at Onset: Light Context: Home Past Medical History - Provider Review Nursing Documentation Reviewed: Yes - Infectious Disease Hx of Infectious Diseases: None - Cardiac Hx Cardiac Disorders: No - Pulmonary Hx Respiratory Disorders: Yes Hx Bronchitis: Yes - Neurological Hx Neurological Disorder: No - HEENT Hx HEENT Disorder: Yes - Renal Hx Renal Disorder: Yes Hx Kidney Stones: Yes - Endocrine/Metabolic Hx Endocrine Disorders: No - Hematological/Oncological Hx Blood Disorders: Yes Hx Cirrhosis: Yes Other/Comment: Stage IV liver disease - Integumentary Hx Dermatological Disorder: No - Musculoskeletal/Rheumatological Hx Musculoskeletal Disorders: Yes Hx Herniated Disk: Yes - Gastrointestinal Hx Gastrointestinal Disorders: Yes Hx Liver Failure: Yes Other/Comment: GI BLEED - Genitourinary/Gynecological Hx Genitourinary Disorders: No - Psychiatric Hx Psychophysiologic Disorder: No Hx Substance Use: No - Surgical History Hx Orthopedic Surgery: Yes Other/Comment: right knee - Anesthesia Hx Anesthesia: Yes Hx Anesthesia Reactions: No Family/Social History - Physician Review Nursing Documentation Reviewed: Yes Family/Social History: Unknown Family HX Smoking Status: Never Smoked Hx Alcohol Use: Yes Frequency of alcohol use: Socially Hx Substance Use: No Allergies/Home Meds Allergies/Adverse Reactions: Allergies codeine Allergy (Verified 04/01/18 07:48) RASH Opioids - Morphine Analogues Allergy (Verified 04/01/18 07:48) VOMITING Penicillins Allergy (Verified 04/01/18 07:48) RASH Review of Systems - Physician Review All systems were reviewed & negative as marked: Yes - Review of Systems Constitutional: absent: Fatigue, Weight Change, Fevers, Night Sweats Respiratory: Cough (+productive cough), Sputum (+clear, white sputum) Cardiovascular: absent: Chest Pain, SOLIZ Neurological: absent: Focal Weakness (no syncopal weakness) Physical Exam Vital Signs Reviewed: Yes Vital Signs Temp Pulse Resp BP Pulse Ox 04/01/18 08:03 98.4 F 80 18 136/82 98 04/01/18 07:45 98.4 F 80 18 136/82 98 Temperature: Afebrile Blood Pressure: Normal Pulse: Regular Respiratory Rate: Normal Appearance: Positive for: Well-Appearing, Non-Toxic, Comfortable Pain Distress: None Mental Status: Positive for: Alert and Oriented X 3 - Systems Exam Head: Present: Atraumatic, Normocephalic Pupils: Present: PERRL Extroacular Muscles: Present: EOMI Conjunctiva: Present: Normal Mouth: Present: Moist Mucous Membranes Neck: Present: Normal Range of Motion Respiratory/Chest: Present: Clear to Auscultation, Other (+decreased I:E ratio) . No: Respiratory Distress, Accessory Muscle Use Cardiovascular: Present: Regular Rate and Rhythm, Normal S1, S2. No: Murmurs Abdomen: No: Tenderness, Distention, Peritoneal Signs Back: Present: Normal Inspection Upper Extremity: Present: Normal Inspection. No: Cyanosis, Edema Lower Extremity: Present: Normal Inspection. No: Edema Neurological: Present: GCS=15, CN II-XII Intact, Speech Normal Skin: Present: Warm, Dry, Normal Color. No: Rashes Psychiatric: Present: Alert, Oriented x 3, Normal Insight, Normal Concentration Medical Decision Making ED Course and Treatment: 04/01/18 08:41 Impression: 52 year old male presenting to the emergency department complaining of productive coughing. Plan: -- Chest X-ray 2 views -- Ventolin refill -- Albuterol -- Reassess and disposition Prior Visits: Notes and results from previous visits were reviewed. Patient was last seen in the emergency department on 03/08/18 for a left sided renal colic and was discharged when symptoms improved. Progress Notes: 04/01/18 09:32 cxr midly positive for peribronchial cuffing serial pulmonary exams cta w/ improved i/e ratio s/p bronchodilator administration 04/01/18 09:42 - RAD Interpretation Radiology Orders: 04/01/18 08:21 CHEST TWO VIEWS (PA/LAT) [RAD] Stat - Medication Orders Current Medication Orders: Discontinued Medications Albuterol Sulfate (Albuterol 0.083% Inhal Lucy (2.5 Mg/3 Ml) Ud) 2.5 mg INH STAT STA Stop: 04/01/18 08:21 Last Admin: 04/01/18 08:39 Dose: 2.5 mg - Scribe Statement The provider has reviewed the documentation as recorded by the Ashley Goodson All medical record entries made by the Ashley were at my direction and personally dictated by me. I have reviewed the chart and agree that the record accurately reflects my personal performance of the history, physical exam, medical decision making, and the department course for this patient. I have also personally directed, reviewed, and agree with the discharge instructions and disposition. Disposition/Present on Arrival - Present on Arrival Any Indicators Present on Arrival: No History of DVT/PE: No History of Uncontrolled Diabetes: No Urinary Catheter: No History of Decub. Ulcer: No History Surgical Site Infection Following: None - Disposition Have Diagnosis and Disposition been Completed?: Yes Diagnosis: Bronchitis Disposition: HOME/ ROUTINE Disposition Time: 09:35 Patient Plan: Discharge Condition: IMPROVED Discharge Instructions (ExitCare): Acute Bronchitis Print Language: SRI LANKAN Additional Instructions: Please drink plenyt of water, avoid dairy products to facilitate better easily clearable mucoid expectoration. Follow up with PMD as needd for worsening. TAke the antibiotic course for improvement. Prescriptions: Albuterol 0.083% [Albuterol 0.083% Inhal Lucy (2.5 mg/3 ml) UD] 2.5 mg IH Q4 PRN 7 Days neb PRN Reason: Cough Albuterol HFA [Ventolin HFA 90 mcg/actuation (8 g)] 0.09 mg IH Q4 7 Days puff Azithromycin [Z-Gabo] 250 mg PO DAILY #6 tab Referrals[facility] [place] [facility] [place] - Follow up with primary Forms: [employer] (Chinese)
[2018-04-01 09:51] VITALS: BP 135/70; PULSE 88; TEMP 98.3
--- NOTE | 2018-04-01 10:26 | RAD ---
Date of service: 04/01/2018 HISTORY: 2 wks cough COMPARISON: No prior. TECHNIQUE: Chest PA and lateral FINDINGS: LUNGS: No active pulmonary disease. PLEURA: No significant pleural effusion identified. No pneumothorax apparent. CARDIOVASCULAR: Normal. OSSEOUS STRUCTURES: No significant abnormalities. VISUALIZED UPPER ABDOMEN: Normal. OTHER FINDINGS: None. IMPRESSION: No active disease.
== END 2018-04-01 09:50 | disposition home or self-care (01) ==
LOC: ED 07:22
DX: J40 Bronchitis, not specified as acute or chronic (principal)

== ENCOUNTER 2018-06-03 12:08 | Emergency (ER) | payer SELFPAY ==
[2018-06-03 12:08] VITALS: BMI 25.3
--- NOTE | 2018-06-03 13:03 | RAD ---
HISTORY: chest pain COMPARISON: Chest x-ray performed 04/01/18 TECHNIQUE: Chest, one view. FINDINGS: LUNGS: Visualization of the superior most apices. No focal consolidation. Please note that chest x-ray has limited sensitivity for the detection of pulmonary masses. PLEURA: No significant pleural effusion identified. No definite pneumothorax . CARDIOVASCULAR: Heart size appears within normal limits. Atherosclerotic calcification present. OSSEOUS STRUCTURES: No acute osseous abnormality identified. VISUALIZED UPPER ABDOMEN: Unremarkable. OTHER FINDINGS: None. IMPRESSION: No focal consolidation.
--- NOTE | 2018-06-03 13:13 | ED PDOC ---
Arrival/HPI - General Chief Complaint: Dizziness/Lightheaded Time Seen by Provider: 06/03/18 12:27 Historian: Patient - History of Present Illness Narrative History of Present Illness (Text): 06/03/18 12:37 A 52 year old male, whose past medical history includes 4 cirrhosis, s/p tracheostomy now closed, s/p pneumonia positive for MDR, presents to the emergency department complaining of dizziness starting earlier today. Patient reports also experiencing an unsteady gait, which patient states he feels like he is "walking on mush", and having "orange" urine that is foul smelling. Patient describes dizziness as room-spinning sensation and as though he is "really drunk." Patient denies any headache, dysuria, or any other complaints at this time. Denies any history of smoking, however admits to drinking alcohol throughout the week. Also, patient refuses to take any medical for dizziness. 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 No PMD Time/Duration: Other (earlier today) Past Medical History - Provider Review Nursing Documentation Reviewed: Yes - Infectious Disease Hx of Infectious Diseases: None - Cardiac Hx Cardiac Disorders: No - Pulmonary Hx Respiratory Disorders: Yes Hx Bronchitis: Yes - Neurological Hx Neurological Disorder: No - HEENT Hx HEENT Disorder: Yes - Renal Hx Renal Disorder: Yes Hx Kidney Stones: Yes - Endocrine/Metabolic Hx Endocrine Disorders: No - Hematological/Oncological Hx Blood Disorders: Yes Hx Cirrhosis: Yes Other/Comment: Stage IV liver disease - Integumentary Hx Dermatological Disorder: No - Musculoskeletal/Rheumatological Hx Musculoskeletal Disorders: Yes Hx Herniated Disk: Yes - Gastrointestinal Hx Gastrointestinal Disorders: Yes Hx Liver Failure: Yes Other/Comment: GI BLEED - Genitourinary/Gynecological Hx Genitourinary Disorders: No - Psychiatric Hx Psychophysiologic Disorder: No Hx Substance Use: No - Surgical History Hx Orthopedic Surgery: Yes Other/Comment: right knee - Anesthesia Hx Anesthesia: Yes Hx Anesthesia Reactions: No Family/Social History - Physician Review Nursing Documentation Reviewed: Yes Family/Social History: No Known Family HX Smoking Status: Never Smoked Hx Alcohol Use: Yes Hx Substance Use: No Allergies/Home Meds Allergies/Adverse Reactions: Allergies codeine Allergy (Verified 06/03/18 12:30) RASH Opioids - Morphine Analogues Allergy (Verified 06/03/18 12:30) VOMITING Penicillins Allergy (Verified 06/03/18 12:30) RASH Home Medications: Home Meds Medication Instructions Recorded Confirmed No Known Home Med 06/03/18 06/03/18 Review of Systems - Physician Review All systems were reviewed & negative as marked: Yes - Review of Systems Gastrointestinal: Nausea Neurological: Dizziness, Gait Changes (unsteady gait, which patient states he feels like he is "walking on mush".). absent: Headache Physical Exam - Physical Exam Narrative Physical Exam (Text): Gen: VS reviewed, alert, well developed, well nourished, nontoxic, mild distress Eye: EOMI, PERRL Neck: no JVD, supple, no adenopathy CV: regular rate, regular rhythm, no rubs,no murmur, S1, S2 Pulm: no distress, clear to auscultation, no wheeze, no rhonchi, breath sounds equal, no rales Abd: soft, nontender, no guarding, no rebound, no rigidity Ext: no edema Skin: good color, no rash, no cyanosis, multiple linear superficial lacerations along anterior aspects of forearms bilaterally with no active bleeding Psych: responds appropriately to questions, normal affect Neuro: oriented x3, CN2-12 intact grossly, motor intact, sensation intact, rotary nystagmus, unsteady gait wide-based, normal [id number] and [id number]-[id number] exam bilaterally Vital Signs Reviewed: Yes Vital Signs Temp Pulse Resp BP Pulse Ox 06/03/18 12:57 97.8 F 75 16 136/69 97 06/03/18 12:22 98.5 F 97 H 18 141/81 97 Temperature: Afebrile Blood Pressure: Normal Pulse: Regular Respiratory Rate: Normal Appearance: Positive for: Well-Appearing, Non-Toxic, Comfortable Pain Distress: None Mental Status: Positive for: Alert and Oriented X 3 Medical Decision Making ED Course and Treatment: 06/03/18 12:38 Impression: 52 year old male with dizziness and unsteady gait, hematuria, and foul smelling urine. Physical exam shows rotary nystagmus, unsteady gait wide- based, multiple linear superficial lacerations to the anterior aspects of the forearms bilaterally no active bleeding. Plan: -- Head CT -- Head/Neck CTA -- EKG -- Labs -- Urine Culture -- Urinalysis -- Reassess and disposition Prior Visits: Notes and results from previous visits were reviewed. Patient was last seen here in the emergency department on 04/01/2018 for productive cough. Patient was discharged home for bronchitis. Progress Notes: 06/03/18 12:39 Dr. Thomas has been paged. 06/03/18 12:[address] Thomas, who recommends ordering CT Head and CTA He ad/Neck. Also, he states based on patient's presentation, a Code Stroke need not be initiated. 06/03/2018 13:00 Head/Neck CTA FINDINGS: INTERNAL CEREBRAL ARTERIES: Unremarkable. The skull base, petrous, cavernous and supraclinoid segments are bilaterally widely patent. ANTERIOR CEREBRAL ARTERIES: Unremarkable. A1 and A2 segments are widely patent. Smaller distal branches unremarkable, as visualized. MIDDLE CEREBRAL ARTERIES: Unremarkable. M1 and M2 segments are widely patent. Perisylvian branches grossly symmetric. POSTERIOR CIRCULATION: Basilar Artery: Unremarkable. 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 Posterior Cerebral Arteries: Normal left INVESTMENT ANALYST. Hypoplastic right INVESTMENT ANALYST. Posterior Inferior Cerebellar Arteries: Unremarkable. NECK CTA: Common Carotid arteries: The bilateral common carotid appear widely patent from their origins to their bifurcations with no significant stenosis appreciated. No evidence to suggest common carotid artery dissection. Mild bilateral carotid bulbar calcified atherosclerosis. Internal Carotid arteries: No significant stenosis is appreciated throughout the cervical internal carotid artery segments bilaterally and there is no evidence of dissection either. External Carotid arteries: Appear unremarkable bilaterally. Vertebral arteries: The bilateral vertebral arteries appear normal in caliber from their origins to their distal cervical segments. No significant stenosis or definite pattern of dissection. ANEURYSM/ VASCULAR MALFORMATIONS: None. OTHER FINDINGS: None. IMPRESSION: 1. No occlusion or significant stenosis appreciable in CT angiography of the brain as well as neck. 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 Hypoplastic right INVESTMENT ANALYST. 2. Mild bilateral carotid bulbar atherosclerotic plaque. Dictator: Cy Blackmon MD 06/03/2018 13:[address] FINDINGS: HEMORRHAGE: No intracranial hemorrhage. BRAIN: No mass effect or edema. The haider-white matter differentiation appears intact. Intracranial atherosclerosis. Please note that MRI with diffusion imaging is more sensitive in the detection of acute ischemic event. VENTRICLES: No hydrocephalus. CALVARIUM: Unremarkable. PARANASAL SINUSES: Unremarkable as visualized. No significant inflammatory changes. MASTOID AIR CELLS: Unremarkable as visualized. No inflammatory changes. OTHER FINDINGS: None. IMPRESSION: No acute intracranial pathology identified. Dictator: Cy Blackmon MD 06/03/18 17:32 patient eval by PES and has been cleared for discharge and outpt therapy. patient does not require acute hospitalization, does not appear to be an apparent threat to himself or others. patient does not exhibit s/s of alcohol withdrawal on follow up bedside exam. patient has clear speech and steady gait and is stable for dc. 06/03/18 17:34 - RAD Interpretation Radiology Orders: 06/03/18 12:39 CHEST PORTABLE [RAD] Stat 06/03/18 12:47 CTA HEAD & NECK BUNDLE [CT] Stat 06/03/18 12:48 HEAD W/O CONTRAST [CT] Stat - EKG Interpretation EKG Interpretation (Text): 06/03/18 13:36 1250: nsr at 73 bpm, nml qrs, nml axis, nonspecific t wave abn Interpreted by ED Physician: Yes - Scribe Statement The provider has reviewed the documentation as recorded by the Ashley Mar Provider Scribe Attestation: All medical record entries made by the Scribe were at my direction and personally dictated by me. I have reviewed the chart and agree that the record accurately reflects my personal performance of the history, physical exam, medical decision making, and the department course for this patient. I have also personally directed, reviewed, and agree with the discharge instructions and disposition. Disposition/Present on Arrival - Present on Arrival Any Indicators Present on Arrival: No History of DVT/PE: No History of Uncontrolled Diabetes: No Urinary Catheter: No History of Decub. Ulcer: No History Surgical Site Infection Following: None - Disposition Have Diagnosis and Disposition been Completed?: Yes Diagnosis: Alcohol intoxication Disposition: HOME/ ROUTINE Disposition Time: 17:33 Patient Plan: Discharge Patient Problems: Current Active Problems Problem Status Onset Alcohol intoxication Acute Vertigo Acute Condition: STABLE Discharge Instructions (ExitCare): Alcohol Abuse and Alcoholism (DC) Additional Instructions: JOSEPH RODRIGUEZ, thank you for letting us take care of you today. Your provider was Dr. Jose Luis Handy and you were treated for alcohol intoxication. The emergency medical care you received today was directed at your acute symptoms. If you were prescribed any medication, please fill it and take as directed. It may take several days for your symptoms to resolve. Return to the Emergency Department if your symptoms worsen, do not improve, or if you have any other problems. Please contact your doctor or call one of the physicians/clinics you have been referred to that are listed on the Patient Visit Information form that is included in your discharge packet. Bring any paperwork you were given at discharge with you along with any medications you are taking to your follow up visit. Our treatment cannot replace ongoing medical care by a primary care provider outside of the emergency department. Thank you for allowing the [facility] team to be part of your care today. If you had an X-Ray or CT scan: A Radiologist will review the ED reading if any change in treatment is needed we will contact you. If you had a blood, urine, or wound culture: It will take several days for the results, if any change in treatment is needed we will contact you. If you had an STI test: It will take 48 hours for the results. Please call after 1 week if you have not heard back. Referrals: [facility] [Outside] - Follow up with primary Loreta Burger MD [Medical Doctor] - Follow up with primary Forms: [employer] (Namibian)
[2018-06-03] MEDS ORDERED: Iohexol 350 MG/100 ML VIAL ONE (13:18)
[2018-06-03 13:44] LABS: BASO # 0.02 K/mm3 (0.0-2.0); BASO % 0.5 % (0.0-3.0); EOS # 0.1 (0.0-0.7); EOS % 3.3 % (1.5-5.0); GRAN # 1.76 (1.4-6.5); GRAN % 41.9 % (50.0-68.0); HEMOGLOBIN 13.4 g/dL (14.0-18.0); LYMPH # 2.1 (1.2-3.4); LYMPH % 50.5 % (22.0-35.0); MEAN CELL VOLUME 97.1 fl (80.0-105.0); MEAN CORPUSCULAR HEMOGLOBIN 34.9 pg (25.0-35.0); MEAN CORPUSCULAR HGB CONC 35.9 g/dl (31.0-37.0); MEAN PLATELET VOLUME 10.6 fl (7.0-11.0); MONO # 0.2 (0.1-0.6); MONO % 3.8 % (1.0-6.0); RBC 3.84 10^6/uL (3.5-6.1); RED CELL DISTRIBUTION WIDTH 16.2 % (11.5-14.5); WHITE BLOOD COUNT 4.2 10^3/uL (4.5-11.0)
[2018-06-03 13:45] LABS: ALB/GLOB RATIO 0.9 (1.1-1.8); ALBUMIN 3.8 g/dL (3.0-4.8); ALT/SGPT 46 U/L (7-56); AST/SGOT 112 U/L (17-59); BLOOD UREA NITROGEN 7 mg/dL (7-21); CALCIUM 8.5 mg/dL (8.4-10.5); GFR NON-AFRICAN AMERICAN > 60
[2018-06-03 13:48] LABS: INR 1.9; PARTIAL THROMBOPLASTIN TIME 43.4 Seconds (25.1-36.5); PROTHROMBIN TIME 22.1 SECONDS (9.4-12.5)
[2018-06-03 13:56] LABS: TROPONIN I < 0.01 ng/mL
--- NOTE | 2018-06-03 14:31 | CT ---
Date of service: 06/03/2018 PROCEDURE: CT HEAD WITHOUT CONTRAST. HISTORY: dizziness COMPARISON: None available. TECHNIQUE: Axial computed tomography images were obtained through the head/brain without intravenous contrast. Radiation dose: Total exam DLP = 864.19 mGy-cm. This CT exam was performed using one or more of the following dose reduction techniques: Automated exposure control, adjustment of the mA and/or kV according to patient size, and/or use of iterative reconstruction technique. FINDINGS: HEMORRHAGE: No intracranial hemorrhage. BRAIN: No mass effect or edema. The haider-white matter differentiation appears intact. Intracranial atherosclerosis. Please note that MRI with diffusion imaging is more sensitive in the detection of acute ischemic event. VENTRICLES: No hydrocephalus. CALVARIUM: Unremarkable. PARANASAL SINUSES: Unremarkable as visualized. No significant inflammatory changes. MASTOID AIR CELLS: Unremarkable as visualized. No inflammatory changes. OTHER FINDINGS: None. IMPRESSION: No acute intracranial pathology identified.
--- NOTE | 2018-06-03 14:56 | CT ---
Date of service: 06/03/2018 PROCEDURE: CT Angiography of the Brain and Neck. HISTORY: dizziness COMPARISON: None available. TECHNIQUE: CT angiography of the intracranial and neck arteries was performed. Coronal and sagittal maximum intensity projection reformated images were generated. Radiation dose: Total exam DLP = 525.1 mGy-cm. This CT exam was performed using one or more of the following dose reduction techniques: Automated exposure control, adjustment of the mA and/or kV according to patient size, and/or use of iterative reconstruction technique. FINDINGS: INTERNAL CEREBRAL ARTERIES: Unremarkable. The skull base, petrous, cavernous and supraclinoid segments are bilaterally widely patent. ANTERIOR CEREBRAL ARTERIES: Unremarkable. A1 and A2 segments are widely patent. Smaller distal branches unremarkable, as visualized. MIDDLE CEREBRAL ARTERIES: Unremarkable. M1 and M2 segments are widely patent. Perisylvian branches grossly symmetric. POSTERIOR CIRCULATION: Basilar Artery: Unremarkable. 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 Posterior Cerebral Arteries: Normal left MOUNTER SMOKING PIPE. Hypoplastic right MOUNTER SMOKING PIPE. Posterior Inferior Cerebellar Arteries: Unremarkable. NECK CTA: Common Carotid arteries: The bilateral common carotid appear widely patent from their origins to their bifurcations with no significant stenosis appreciated. No evidence to suggest common carotid artery dissection. Mild bilateral carotid bulbar calcified atherosclerosis. Internal Carotid arteries: No significant stenosis is appreciated throughout the cervical internal carotid artery segments bilaterally and there is no evidence of dissection either. External Carotid arteries: Appear unremarkable bilaterally. Vertebral arteries: The bilateral vertebral arteries appear normal in caliber from their origins to their distal cervical segments. No significant stenosis or definite pattern of dissection. ANEURYSM/ VASCULAR MALFORMATIONS: None. OTHER FINDINGS: None. IMPRESSION: 1. No occlusion or significant stenosis appreciable in CT angiography of the brain as well as neck. 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 Hypoplastic right MOUNTER SMOKING PIPE. 2. Mild bilateral carotid bulbar atherosclerotic plaque.
--- NOTE | 2018-06-03 15:05 | CP.PCM.CON ---
History of Present Illness - History of Present Illness History of Present Illness: Neurology Consultation Note: Mr. Tay is a 52-year-old man with stage IV liver disease, who woke up this morning with dizziness and scratches on his arms. He said he was dreaming of a sword fight. On initial exam in the ED, he was ataxic, but this resolved. His blood alcohol level was 198. CT and CTA of the head/neck were normal. Review of Systems - Constitutional Constitutional: As Per HPI - EENT Eyes: absent: As Per HPI, Blind Spots, Blurred Vision, Change in Vision, Decreased Night Vision, Diplopia, Discharge, Dry Eye, Exophthalmos, Floaters, Irritation, Itchy Eyes, Loss of Peripheral Vision, Pain, Photophobia, Requires Corrective Lenses, Sees Flashes, Spots in Vision, Tunnel Vision, Other Visual Disturbances, Loss of Vision, Other Ears: absent: As Per HPI, Decreased Hearing, Ear Discharge, Ear Pain, Tinnitus, Abnormal Hearing, Disequilibrium, Dizziness, Other Nose/Mouth/Throat: absent: As Per HPI, Epistaxis, Nasal Congestion, Nasal Discharge, Nasal Obstruction, Nasal Trauma, Nose Pain, Post Nasal Drip, Sinus Pain, Sinus Pressure, Bleeding Gums, Change in Voice, Dental Pain, Dry Mouth, Dysphagia, Halitosis, Hoarsness, Lip Swelling, Mouth Lesions, Mouth Pain, Odynophagia, Sore Throat, Throat Swelling, Tongue Swelling, Facial Pain, Neck Pain, Neck Mass, Other - Cardiovascular Cardiovascular: absent: As Per HPI, Acrocyanosis, Chest Pain, Chest Pain at Rest, Chest Pain with Activity, Claudication, Diaphoresis, Dyspnea, Dyspnea on Exertion, Edema, Irregular Heart Rhythm, Pain Radiating to Arm/Neck/Jaw, Leg Edema, Leg Ulcers, Lightheadedness, Orthopnea, Palpitations, Paroxysmal Nocturnal Dyspnea, Pedal Edema, Radiating Pain, Rapid Heart Rate, Slow Heart Rate, Syncope, Other - Respiratory Respiratory: absent: As Per HPI, Cough, Dyspnea, Hemoptysis, Dyspnea on Exert ion, Wheezing, Snoring, Stridor, Pain on Inspiration, Chest Congestion, Excessive Mucous Production, Change in Mucous Color, Pain with Coughing, Other - Gastrointestinal Gastrointestinal: absent: As Per HPI, Abdominal Pain, Belching, Bloating, Change in Bowel Habits, Change in Stool Character, Coffee Ground Emesis, Constipation, Cramping, Diarrhea, Dyspepsia, Dysphagia, Early Satiety, Excessive Flatus, Fecal Incontinence, Heartburn, Hematemesis, Hematochezia, Loose Stools, Melena, Nausea, Odynophagia, Temesmus, Vomiting, Other - Genitourinary Genitourinary: absent: As Per HPI, Change in Urinary Stream, Difficulty U rinating, Dysuria, Flank Pain, Hematuria, Pyuria, Nocturia, Urinary Incontinence, Urinary Frequency, Urinary Hesitance, Urinary Urgency, Voiding Freq/Small Amts, Freq UTI, Hx Renal/Bladder Calculi, Hx /Renal Surgery, Bladder Distension, Other - Integumentary Integumentary: absent: As Per HPI, Acne, Alopecia, Bleeding Lesions, Change in Hair, Change in Nails, Change in Pigmentation, Changing Lesions, Dry Skin, Erythema, Furuncle, Hirsutism, Lesions, New Lesions, Non-Healing Lesions, Photosensitivity, Pruritus, Rash, Skin Pain, Skin Ulcer, Sores, Striae, Swelling, Unusual Bruising, Wounds, Jaundice, Other - Neurological Neurological: As Per HPI - Psychiatric Psychiatric: absent: As Per HPI, Abnormal Sleep Pattern, Anhedonia, Anxiety, Auditory Hallucinations, Behavioral Changes, Change in Appetite, Change in Libido, Confusion, Depression, Difficulty Concentrating, Hallucinations, Homicidal Ideation, Hopelessness, Irritability, Memory Loss, Mood Swings, Panic Attacks, Paranoia, Suicidal Ideation, Visual Hallucinations, Tactile Hallucinations, Other - Endocrine Endocrine: absent: As Per HPI, Change in Body Appearance, Change in Libido, Cold Intolorance, Deepening of Voice, Excessive Sweating, Fatigue, Flushing, Heat Intolorance, Increase in Ring/Shoe/Hat Size, Palpitations, Polydipsia, Polyphagia, Polyuria, Other - Hematologic/Lymphatic Hematologic: absent: As Per HPI, Easy Bleeding, Easy Bruising, Lymphadenopathy, Other Past Patient History - Infectious Disease Hx of Infectious Diseases: None - Past Social History Smoking Status: Never Smoked - CARDIAC Hx Cardiac Disorders: No - PULMONARY Hx Respiratory Disorders: Yes Hx Bronchitis: Yes - NEUROLOGICAL Hx Neurological Disorder: No - HEENT Hx HEENT Problems: Yes - RENAL Hx Chronic Kidney Disease: Yes Hx Kidney Stones: Yes - ENDOCRINE/METABOLIC Hx Endocrine Disorders: No - HEMATOLOGICAL/ONCOLOGICAL Hx Blood Disorders: Yes Hx Cirrhosis: Yes Other/Comment: Stage IV liver disease - INTEGUMENTARY Hx Dermatological Problems: No - MUSCULOSKELETAL/RHEUMATOLOGICAL Hx Musculoskeletal Disorders: Yes Hx Herniated Disk: Yes - GASTROINTESTINAL Hx Gastrointestinal Disorders: Yes Hx Liver Failure: Yes Other/Comment: GI BLEED - GENITOURINARY/GYNECOLOGICAL Hx Genitourinary Disorders: No - PSYCHIATRIC Hx Psychophysiologic Disorder: No Hx Substance Use: No - SURGICAL HISTORY Hx Orthopedic Surgery: Yes Other/Comment: right knee - ANESTHESIA Hx Anesthesia: Yes Hx Anesthesia Reactions: No Meds Allergies/Adverse Reactions: Allergies Allergy/AdvReac Type Severity Reaction Status Date / Time codeine Allergy RASH Verified 06/03/18 12:30 Opioids - Morphine Analogues Allergy VOMITING Verified 06/03/18 12:30 Penicillins Allergy RASH Verified 06/03/18 12:30 Physical Exam - Constitutional Appears: Well - Head Exam Head Exam: ATRAUMATIC, NORMAL INSPECTION, NORMOCEPHALIC - Eye Exam Eye Exam: EOMI, PERRL, Scleral icterus Pupil Exam: NORMAL ACCOMODATION - ENT Exam ENT Exam: Mucous Membranes Moist, Normal Exam - Neck Exam Neck exam: Positive for: Normal Inspection - Respiratory Exam Respiratory Exam: Clear to Auscultation Bilateral, NORMAL BREATHING PATTERN - Cardiovascular Exam Cardiovascular Exam: REGULAR RHYTHM, +S1, +S2 - GI/Abdominal Exam GI & Abdominal Exam: Normal Bowel Sounds, Soft. absent: Tenderness - Rectal Exam Rectal Exam: Deferred - Back Exam Back exam: NORMAL INSPECTION - Neurological Exam Neurological exam: Alert, CN II-XII Intact, Normal Gait, Oriented x3, Reflexes Normal - Psychiatric Exam Psychiatric exam: Normal Affect, Normal Mood - Skin Skin Exam: Dry, Intact, Normal Color, Warm Results - Vital Signs Recent Vital Signs: Last Vital Signs Temp 97.8 F 06/03/18 12:57 Pulse 75 06/03/18 12:57 Resp 16 06/03/18 12:57 BP 136/69 06/03/18 12:57 Pulse Ox 97 06/03/18 12:57 - Labs Result Diagrams: 06/03/18 13:00 06/03/18 13:00 Labs: Laboratory Results - last 24 hr 06/03/18 06/03/18 06/03/18 13:00 13:00 13:00 WBC 4.2 L RBC 3.84 Hgb 13.4 L Hct 37.3 L MCV 97.1 MCH 34.9 MCHC 35.9 RDW 16.2 H Plt Count 51 L MPV 10.6 Gran % 41.9 L Lymph % (Auto) 50.5 H Rooks % (Auto) 3.8 Eos % (Auto) 3.3 Baso % (Auto) 0.5 Gran # 1.76 Lymph # (Auto) 2.1 Rooks # (Auto) 0.2 Eos # (Auto) 0.1 Baso # (Auto) 0.02 PT 22.1 H INR 1.90 APTT 43.4 H Sodium 147 Potassium 3.8 Chloride 111 H Carbon Dioxide 24 Anion Gap 16 BUN 7 Creatinine 0.6 L Est GFR ( Amer) > 60 Est GFR (Non-Af Amer) > 60 Random Glucose 177 H Calcium 8.5 Magnesium 2.0 Total Bilirubin 4.1 H AST 112 H D ALT 46 Alkaline Phosphatase 142 H Troponin I < 0.01 Total Protein 7.8 Albumin 3.8 Globulin 4.0 Albumin/Globulin Ratio 0.9 L TSH 3rd Generation Alcohol, Quantitative 06/03/18 13:00 WBC RBC Hgb Hct MCV MCH MCHC RDW Plt Count MPV Gran % Lymph % (Auto) Rooks % (Auto) Eos % (Auto) Baso % (Auto) Gran # Lymph # (Auto) Rooks # (Auto) Eos # (Auto) Baso # (Auto) PT INR APTT Sodium Potassium Chloride Carbon Dioxide Anion Gap BUN Creatinine Est GFR ( Amer) Est GFR (Non-Af Amer) Random Glucose Calcium Magnesium Total Bilirubin AST ALT Alkaline Phosphatase Troponin I Total Protein Albumin Globulin Albumin/Globulin Ratio TSH 3rd Generation 0.28 L Alcohol, Quantitative 198 H Assessment & Plan (1) Vertigo Assessment and Plan: The patient has hepatic failure and likely does not process alcohol well. He was possibly having symptoms of alcohol toxicity. Currently, his neurological exam is normal and he is ambulating normally. No further recommendations at this time. Thank you for this consultation. Status: Acute
[2018-06-03 15:41] LABS: PH,URINE 6.5 (4.7-8.0); URINE APPEARANCE SLIGHT-CLOUDY (CLEAR); URINE BILIRUBIN MODERATE (NEGATIVE); URINE BLOOD LARGE (NEGATIVE); URINE COLOR DARK YELLOW (YELLOW); URINE GLUCOSE (UA) 100 mg/dL (NEGATIVE); URINE LEUKOCYTE ESTERASE NEGATIVE Leu/uL (NEGATIVE); URINE PROTEIN NEGATIVE mg/dL (<30 mg/dL); URINE UROBILINOGEN >=8.0 E.U./dL (<1 E.U./dL)
[2018-06-03 15:49] LABS: URINE WBC NEGATIVE /hpf (0-6)
[2018-06-03 15:50] LABS: URINE BACTERIA NEG (NEG); URINE CALCIUM OXALATE CRYSTALS TRACE /hpf; URINE EPITHELIAL CELLS 0 - 2 /hpf (0-5)
[2018-06-03 16:48] LABS: BARBITURATES, UR NEGATIVE (NEGATIVE); BENZODIAZEPINES, UR NEGATIVE (NEGATIVE); OPIATES, UR NEGATIVE (NEGATIVE); PHENCYCLIDINE, UR NEGATIVE (NEGATIVE)
[2018-06-03 16:49] VITALS: BP 133/65; RESP 18
[2018-06-03 17:49] VITALS: PULSE 87; TEMP 98; O2SAT 99
--- NOTE | 2018-06-03 22:42 | CARD ---
APPROVED REPORT Date of service: 06/03/2018 EKG Measurement Heart [id number] <Conclusion> Normal sinus rhythm Nonspecific T wave abnormality Abnormal ECG
== END 2018-06-03 17:49 | disposition home or self-care (01) ==
LOC: ED 12:08
DX: F10.129 Alcohol abuse with intoxication, unspecified (principal)
CPT/HCPCS: 70450; 70496; 70498; 71045; 80053; 81001; 82140; 83735; 84443; 84484; 85025; 85610; 85730; 87086; 90791; 93005; 99285; G0480; Q9967